=== PATIENT | male | born 1980 | race Caucasian/White ===

== ENCOUNTER 2017-06-19 13:17 | Emergency (ER) | payer OTHER ==
[2017-06-19 13:25] VITALS: BP 160/101; PULSE 90; RESP 16; TEMP 98.6; O2SAT 97
--- NOTE | 2017-06-19 13:54 | EDPHY ---
HPI/HX/ROS/PE/MDM Narrative: CHIEF COMPLAINT: Head injury, feels "out of it" HPI: The patient is a 37 y/o male complaining of dizziness secondary to a fall on ice while playing hockey last night. He fell backwards on the ice and struck the back of his head on the ice. He was helmeted, but did lose consciousness. He denies any other injuries. He felt poor last night and continues to feel "woozy and out of it" today. He has associated nausea, but no vomiting, and feels like his "equilibrium is off." He denies severe headache, vision changes, speech difficulty, confusion, weakness, or paresthesias. He is normally healthy. REVIEW OF SYSTEMS: Aside from elements discussed in the HPI, a comprehensive 10-point review of systems was reviewed and is negative. PMH: Denies SOCIAL HISTORY: Works for [employer]. Single. Lives in [place]. PHYSICAL EXAM: General:Patient is alert, in no acute distress. ENT:Eyes are normal to inspection. ENT inspection normal. Neck: Normal inspection. Full range of motion. Respiratory:No respiratory distress. Breath sounds normal bilaterally. Cardiovascular: Regular rate and rhythm. Strong peripheral pulses. Normal cap refill. Abdomen:The abdomen is nontender to palpation. There are no peritoneal signs. Back: Normal to inspection. No tenderness to palpation. Skin: Normal color. No rash. Warm and dry. Extremities: Normal appearance. Full range of motion. Neuro: Oriented x3. Normal motor function. Normal sensory function. No pronator drift. Face symmetric. ED Course: This is a healthy 37 y/o male who presents feeling off and nauseated after a head injury with loss of consciousness greater than 12 hours ago. He has a normal neurologic exam and no visible trauma. We discussed the risks and benefits of head imaging given the limited mechanism of trauma, normal neuro exam, loss of consciousness, length of time elapsed since the injury, and general state of health. My suspicion for severe intracranial injury is low. He has opted to avoid CT imaging today. He will be discharged with standard concussion and head injury care and follow up instructions. Strict return precautions discussed. General Time Seen by Provider: 06/19/17 13:43 Initial Vital Signs: Initial Vital Signs Temperature (C) 37.0 C 06/19/17 13:23 Heart Rate 90 06/19/17 13:23 Respiratory Rate 16 06/19/17 13:23 Blood Pressure 160/101 H 06/19/17 13:23 O2 Sat (%) 97 06/19/17 13:23 O2 Delivery Mode Room Air Allergies/Adverse Reactions: No Known Allergies Allergy (Unverified 06/19/17 13:23) Home Medications: Medication Instructions Recorded NK [No Known Home Meds] 06/19/17 Departure - Departure Disposition: Home, Routine, Self-Care Clinical Impression: Concussion Qualifiers: Encounter type: initial encounter Loss of consciousness presence/duration: without LOC Qualified Code(s): S06.0X0A - Concussion without loss of consciousness, initial encounter Condition: Good Instructions: Concussion (ED), Post Concussion Syndrome (ED) Additional Instructions: 1. Cognitive rest while symptoms are present. Avoid screen time including TV, phone, computers. Slowly advance activity as tolerated and back off if symptoms worsen. 2. Physical rest for the next 10-14 days. Avoid any activities that could put you at risk for recurrent head injury during this period or longer if symptoms persist. No skiing, contact sports, bicycling, etc. 3. Use Tylenol and ibuprofen as directed on the packaging as needed for headache over the next several days. 4. Follow up with Dr. Mcneal, head injury specialist, if symptoms persist beyond about 10 days. 5. Return to the ED for severe pain, weakness or numbness on one side of your body, uncontrollable vomiting, confusion, or other worsening of condition. Referrals: Karen Mcneal MD [Medical Doctor] - As per Instructions Report Scribed for: Ta Lora Report Scribed by: Angely Mejia Date of Report: 06/19/17 Time of Report: 13:49 Physician Review and Approval Statement: Portions of this note were transcribed by an ED scribe. I personally performed the history, physical exam, and medical decision making; and confirm the accuracy of the information in the transcribed note.
== END 2017-06-19 14:11 | disposition home or self-care (01) ==
DX: S06.0X0A Concussion without loss of consciousness, initial encounter (principal); W01.198A Fall on same level from slipping, tripping and stumbling with subsequent striking against other object, initial encounter; Y99.8 Other external cause status; Y93.22 Activity, ice hockey